=== PATIENT | male | born 1990 | race Caucasian/White ===

== ENCOUNTER 2017-09-11 16:50 | Emergency (ER) | payer OTHER ==
[~2017-09-11] VITALS: Ht 188 cm; Wt 99.8 kg
[~2017-09-11 16:50] MED LIST: Zofran4 MG PO
[2017-09-11] MEDS ORDERED: Norco 5-325 Ta1 EACH PO (18:47)
[2017-09-11] MEDS ORDERED: Robaxin500 MG PO (18:47)
== END 2017-09-11 19:02 | disposition home or self-care (01) ==
LOC: ER 16:50
DX: S40.212A Abrasion of left shoulder, initial encounter (principal); M79.602 Pain in left arm; M62.838 Other muscle spasm; W22.8XXA Striking against or struck by other objects, initial encounter; Y99.0 Civilian activity done for income or pay; F17.200 Nicotine dependence, unspecified, uncomplicated
CPT/HCPCS: 73140; 99283

== ENCOUNTER 2017-09-21 10:22 | Emergency (ER) | payer OTHER ==
[~2017-09-21] VITALS: Ht 188 cm; Wt 99.8 kg
[~2017-09-21 10:22] MED LIST changes: +Norco 5-325 Ta1 EACH PO; +Robaxin500 MG PO
[2017-09-21] MEDS ORDERED: ALBU90OI INH (11:18)
== END 2017-09-21 11:25 | disposition home or self-care (01) ==
LOC: ER 10:22
DX: Z77.098 Contact with and (suspected) exposure to other hazardous, chiefly nonmedicinal, chemicals (principal); F17.210 Nicotine dependence, cigarettes, uncomplicated
CPT/HCPCS: 71046; 94640; 99283